=== PATIENT | female | born 1950 | race Caucasian/White ===

== ENCOUNTER → 2018-09-02 11:58 | Outpatient (CLI) | payer OTHER, SELFPAY ==
[2016-12-07 18:49] VITALS: BMI 27.5
--- NOTE | 2018-09-02 12:20 | BI_ITS ---
MAMMOGRAPHY - BILATERAL SCREENING 3-D RODO SYNTHESIS REASON FOR EXAM: Female, 68 years old. Bilateral Screening 3-D tomosynthesis PERTINENT HISTORY: Family history of breast cancer in maternal aunt.. TECHNIQUE: 2-D mammograms and 3-D Rodo synthesis of the breast (s) were performed. CAD was performed. COMPARISON: March 15, 2017, March 14, 2016 FINDINGS: The breast composition is heterogeneously dense that can obscure small breast masses. Scattered benign calcifications are stable. There are stable normal-appearing lymph nodes in both axillae. No dense spiculated masses or suspicious microcalcifications are identified. No architectural distortion is identified. There is no skin thickening or retraction. There has been no significant change since the prior study. BI/SCREENING MAMM (CAD), BILAT IMPRESSION: No mammographic signs of malignancy. Routine yearly mammograms recommended. ASSESSMENT CATEGORY: BIRADS Category 2: Benign. A letter regarding these results will be sent to the patient by the facility within 30 days. FOLLOW UP RECOMMENDATION: Yearly follow up mammogram recommended. (A) Approximately 10% of breast cancers are not detected by mammography. A normal mammogram should not delay biopsy of a clinically suspicious abnormality. Electronically Signed: Hans Liang MD at 17:52 EDT , Service support ,
--- NOTE | 2018-09-02 12:30 | BD_ITS ---
STUDY: DUAL ENERGY X-RAY ABSORPTIOMETRY / DXA REASON FOR EXAM: Female, 68 years old. The patient is postmenopausal. Loss of height. TECHNIQUE: Bone Mineral Density (BMD) measurements of lumbar spine and bilateral hips were obtained. COMPARISON: Comparison is made with prior examination dated July 15, 2012. FINDINGS: Lumbar Spine (L1-L4): g/cm2 (1.075) / T-score (-0.8) / Z-score (0.8) Findings are suggestive of normal bone density with a low fracture risk. Left Femur Total: g/cm2 (0.957) / T-score (-0.4) / Z-score (0.9) Left Femoral Neck: g/cm2 (0.923) / T-score (-0.8) / Z-score (0.7) Right Femur Total: g/cm2 (0.893) / T-score (-0.9) / Z-score (0.4) Right Femoral Neck: g/cm2 (0.877) / T-score (-1.2) / Z-score (0.4) The T-Scores on the most recent prior examination were: Lumbar Spine (L1-L4): There has been worsening of bone density since the previous examination. Left Femur Total: which represents an improvement of 0.5%. Right Femur Total: which represents a worsening of 1.3%. BD/Dexa Bone Density Study IMPRESSION: The patient is considered osteopenic as outlined below according to World Joshua Organization (WHO) criteria with a low fracture risk. There has been worsening of bone density since the previous examination. Reference Information: The T-score is the number of standard deviations above or below the standard which is normal for young adults at their peak bone mineral density. The World Health Organization (WHO) interprets the T-scores as follows: Above -1 Normal bone density Between -1 and -2.5 Osteopenia Equal to / or below -2.5 Osteoporosis As a practical clinical guideline, osteopenia may be graded as follows: Mild -1 through -1.5 Moderate -1.6 through -2.0 Severe -2.1 through -2.4 The Z-score is the number of standard deviations above or below age-matched controls. A Z-score of less than -1.5 would be considered abnormal. References: 1. NIH Osteoporosis and Related Bone Diseases http://www.osteo.org 2. International Society for Clinical Densitometry http://www.iscd.org 3. National Osteoporosis Foundation http://www.nof.org Electronically Signed: Robert Trujillo, at 8:45 EDT , Service support ,
== END ==
PROVIDERS: Family Provider Nurse Practitioner; PCP Nurse Practitioner; Referring Provider Nurse Practitioner; Visit Provider Nurse Practitioner
DX: Z12.31 Encounter for screening mammogram for malignant neoplasm of breast (principal); Z78.0 Asymptomatic menopausal state
CPT/HCPCS: 77063; 77067; 77080

== ENCOUNTER 2019-12-01 13:50 | Emergency (ER) | payer OTHER, SELFPAY ==
[2019-12-01 13:51] VITALS: BP 153/71; PULSE 74; RESP 16; TEMP 36.6; O2SAT 97; BMI 27.3
--- NOTE | 2019-12-01 15:08 | ED.DCSUM_ITS ---
- ER Visit Summary Date of Service: 12/01/19 Chief Complaint: [Laceration left index finger] History of Present Illness: The patient is a 69 F [presents to the emergency department with complaint of laceration to the left index finger that occurred this afternoon. Patient states that she was trying to open a nail pashto bottle with a knife when she accidentally cut herself. Patient is right-hand dominant. Patient unclear when her last tetanus was. Patient has no medical history.] Physical Examination: [Left index finger-there is a 2.5 cm laceration over the PIP joint lateral aspect. Patient has normal flexion extension at the PIP and DIP against resistance. She has somewhat decreased sensation distally over the lateral aspect of the digit. She complains of paresthesias.] Test Results: [None indicated] Emergency Department Course and Treatment: [Laceration repair-wound sterilely draped and prepped. Wound anesthetized with 1% lidocaine total of 7 cc using digital block. Wound cleansed with Shur-Clens and irrigated with copious saline. Sterile rubber band used as a tourniquet and good hemostasis was obtained. The wound was inspected through flexion extension and I see no evidence of tendon laceration. Using 5-0 nylon a total of 5 single ruptured sutures placed with good wound edge approximation. Patient tolerated procedure well.] Treatment Plan: [Follow-up with primary care physician in 10 days for suture removal. Patient advised to return if increasing pain, redness, swelling, purulent drainage, or condition should worsen anyway.] Disposition: [Discharged home in stable condition] Impression: [Laceration left index finger 2.5 cm-simple repair] This note was generated with [employer] dictation software. It may contain incorrect words, spelling, and punctuation that were not noted in review of the chart prior to signing ED Disposition - Plan for ED Patient: Referrals: Parris Sparks, RENE-C [Primary Care Provider] -
--- NOTE | 2019-12-01 15:11 | ED.DEP ---
ED Disposition - Plan for ED Patient: Instructions: ED Laceration Hand Referrals: Parris Sparks, RENE-C [Primary Care Provider] - 10 Day for suture removal
[2019-12-01] MEDS: Diphth,Pertuss(Acell),Tet Vac 0.5 ML Vial IM (15:12)
== END 2019-12-01 15:22 | disposition home or self-care (01) ==
LOC: ED 14:40
PROVIDERS: Emergency Provider Emergency Medicine; PCP Nurse Practitioner
DX: S61.211A Laceration without foreign body of left index finger without damage to nail, initial encounter (principal); W26.0XXA Contact with knife, initial encounter; Y93.9 Activity, unspecified; Y92.9 Unspecified place or not applicable; Y99.9 Unspecified external cause status; Z23 Encounter for immunization
CPT/HCPCS: 12001; 90471; 90715; 99283

== ENCOUNTER → 2020-01-14 09:45 | Outpatient (CLI) | payer OTHER, SELFPAY ==
--- NOTE | 2020-01-14 09:49 | BI_ITS ---
MAMMOGRAPHY - BILATERAL SCREENING REASON FOR EXAM: Female, 69 years old. Routine annual screening examination. PERTINENT HISTORY: Aunt with breast cancer. TECHNIQUE: Digital bilateral breast rodo (3D mammographic acquisition) in the CC and MLO projections. 2-D mediolateral oblique (MLO) and craniocaudad (CC) views of both breasts were obtained. CAD: Full Field Digital Mammography with Computer Added Detection was performed. COMPARISON: Comparison is made with prior examination of 09/02/2018 and 03/15/2017. FINDINGS: Breast Composition: The breasts are heterogeneously dense, which may obscure small masses. There are no dominant masses or suspicious calcifications. Stable small benign appearing bilateral axillary lymph nodes. No other significant abnormalities are identified. There has been no significant change since the prior study. BI/SCREEN MAMM (CAD) W/RODO BILAT IMPRESSION: Stable bilateral screening mammogram. Yearly follow-up mammogram recommended. (A) ASSESSMENT CATEGORY: BIRADS Category 2: Benign. A letter regarding these results will be sent to the patient by the facility within 30 days. Approximately 10% of breast cancers are not detected by mammography. A normal mammogram should not delay biopsy of a clinically suspicious abnormality. [id number] Electronically Signed: Robert Trujillo, at 11:31 EDT , Service support ,
== END ==
PROVIDERS: PCP Nurse Practitioner; Referring Provider Nurse Practitioner; Visit Provider Nurse Practitioner
DX: Z12.31 Encounter for screening mammogram for malignant neoplasm of breast (principal)
CPT/HCPCS: 77063; 77067

== ENCOUNTER → 2021-10-18 | Outpatient (CLI) | payer OTHER, SELFPAY ==
--- NOTE | 2021-10-18 15:48 | CT_ITS ---
STUDY: CT ABDOMEN AND PELVIS WITHOUT CONTRAST REASON FOR EXAM: Female, 71 years old. FLANK PAIN RADIATION DOSAGE (If Supplied By Facility): CTDIvol = ( 8.18 ) mGy, DLP = ( 368.01 ) mGycm TECHNIQUE: Transaxial images were obtained from the dome of the diaphragm to the symphysis pubis without oral contrast, and without intravenous contrast. Sagittal and coronal images were reconstructed. Individualized dose optimization techniques were used for this CT. COMPARISON: None. FINDINGS: The visualized lung bases are unremarkable. The visualized portions of the heart are within normal limits. Normal liver. Normal gallbladder and extrahepatic biliary system. Normal spleen. Normal pancreas. Normal bilateral adrenal glands. Normal right kidney. Normal left kidney. Normal visualized stomach. Normal small intestine. Normal colon. The appendix is visualized and appears normal. Normal abdominal aorta. Normal inferior vena cava. Normal retroperitoneum. Normal urinary bladder. Normal abdominal wall. Normal osseous structures. CT/Abdomen/Pelvis without Cont IMPRESSION: Normal unenhanced CT of the abdomen and pelvis. Electronically Signed: Alfredo De La Torre MD at 2:34 EDT ,
== END | disposition home or self-care (01) ==
PROVIDERS: PCP Nurse Practitioner; Referring Provider Internal Medicine; Visit Provider Internal Medicine
DX: R10.9 Unspecified abdominal pain (principal)
CPT/HCPCS: 74176

== ENCOUNTER → 2022-05-17 | Outpatient (CLI) | payer OTHER, SELFPAY ==
--- NOTE | 2022-05-17 09:03 | BI_ITS ---
MAMMOGRAPHY - BILATERAL SCREENING REASON FOR EXAM: Female, 72 years old. Routine annual screening examination. PERTINENT HISTORY: Aunts with breast cancer. TECHNIQUE: Digital bilateral breast rodo (3D mammographic acquisition) in the CC and MLO projections. 2-D mediolateral oblique (MLO) and craniocaudad (CC) views of both breasts were obtained. CAD: Full Field Digital Mammography with Computer Added Detection was performed. COMPARISON: Comparison is made with prior examination dated 01/14/2020 and 09/02/2018. FINDINGS: Breast Composition: The breasts are extremely dense, which lowers the sensitivity of mammography. New cluster of microcalcification in the retroareolar region of the left breast. Biopsy recommended. No other significant abnormalities are identified. BI/SCRN MAMM (CAD)W/RODO BILAT IMPRESSION: New cluster microcalcification in the retroareolar region of the left breast as described. Biopsy recommended. ASSESSMENT CATEGORY: BIRADS Category 4: Suspicious - Biopsy Should Be Considered. A letter regarding these results will be sent to the patient by the facility within 30 days. Approximately 10% of breast cancers are not detected by mammography. A normal mammogram should not delay biopsy of a clinically suspicious abnormality. [id number] Electronically Signed: Robert Trujillo MD at 10:38 EST ,
--- NOTE | 2022-05-17 09:12 | BD_ITS ---
STUDY: DUAL ENERGY X-RAY ABSORPTIOMETRY / DXA REASON FOR EXAM: Female, 72 years old. [id number] TECHNIQUE: Bone Mineral Density (BMD) measurements of lumbar spine and bilateral hips were obtained. COMPARISON: Comparison is made with prior study dated 09/02/2018. FINDINGS: Lumbar Spine (L1-L4): g/cm2 (0.925) / T-score (-0.8) / Z-score (1.3) Findings are suggestive of normal bone density with a low fracture risk. Left Femur Total: g/cm2 (0.877) / T-score (-0.5) / Z-score (1.0) Left Femoral Neck: g/cm2 (0.755) / T-score (-0.9) / Z-score (1.0) Right Femur Total: g/cm2 (0.871) / T-score (-0.6) / Z-score (1.0) Right Femoral Neck: g/cm2 (0.698) / T-score (-1.4) / Z-score (0.5) The T-Scores on the most recent prior examination were: Lumbar Spine (L1-L4): There has been worsening of bone density since the previous examination. Left Femur Total: which represents a worsening of 1.7%. Right Femur Total: which represents an improvement of 4.9%. BD/Dexa Bone Density Study IMPRESSION: The patient is considered osteopenic as outlined below according to World Joshua Organization (WHO) criteria with a low fracture risk. There has been worsening of bone density since the previous examination. Reference Information: The T-score is the number of standard deviations above or below the standard which is normal for young adults at their peak bone mineral density. The World Health Organization (WHO) interprets the T-scores as follows: Above -1 Normal bone density Between -1 and -2.5 Osteopenia Equal to / or below -2.5 Osteoporosis As a practical clinical guideline, osteopenia may be graded as follows: Mild -1 through -1.5 Moderate -1.6 through -2.0 Severe -2.1 through -2.4 The Z-score is the number of standard deviations above or below age-matched controls. A Z-score of less than -1.5 would be considered abnormal. References: 1. NIH Osteoporosis and Related Bone Diseases www osteo.org 2. International Society for Clinical Densitometry www iscd.org 3. National Osteoporosis Foundation www nof.org Electronically Signed: Robert Trujillo MD at 11:54 EST ,
== END | disposition home or self-care (01) ==
PROVIDERS: PCP Nurse Practitioner Family; Visit Provider Nurse Practitioner Family
DX: Z12.31 Encounter for screening mammogram for malignant neoplasm of breast (principal); Z78.0 Asymptomatic menopausal state
CPT/HCPCS: 77063; 77067; 77080

== ENCOUNTER → 2022-06-06 | Outpatient (CLI) | payer OTHER, SELFPAY ==
--- NOTE | 2022-06-06 08:15 | BRBX_PTH ---
PATIENT: KATLYN DENNIS LOC: [facility] U#:[id number] AGE/SX: 72/F ROOM: RE06/06/[address]: Dr. Barrington Donahue MD : 1950 BED: DIS: 06/06/2022 SPEC #: [id number] RECD: 06/06/22 09:13 STATUS: CARLOS REAmy #: [id number] ANGELICA: 06/06/22 08:[address]: Barrington Donahue DEPT: SURGICAL PATHOLOGY RECD BY: Glory Verdugo ENTERED: 06/06/22 09:44 SP TYPE: BREAST BX OTHR DR: Jodi Gil NP-Lucas Tissues: Left breast, NOS Procedures: Surgery Specimen Level IV HEADER OPERATION: Left stereotactic breast biopsy PRE-OP DIAGNOSIS: Left retroareolar breast microcalcification TISSUE SUBMITTED: Left breast core tissue ISCHEMIC TIME: 1 minute FIXATION TIME: 10.5 hours MICROSCOPIC DIAGNOSIS Left retroareolar breast microcalcification, stereotactic core biopsy: Ductal dilatation with periductal fibrosis, chronic inflammation and focal calcifications. Negative for atypia or malignancy. See comment. KARLA:derrick 06/07/2022 COMMENT Correlation with clinical, radiologic findings and appropriate follow up are necessary. MICROSCOPIC DESCRIPTION Slides are reviewed. GROSS DESCRIPTION Received in fixative is one container labeled with the patient's name and designated left breast. The specimen consists of multiple irregular and elongated fragments of akhtar-yellow soft tissue that in aggregate measure 3 x 2.2 x 0.2 cm. The specimen is totally submitted in one cassette. / AM:derrick 06/06/2022 TC:5 CPT: 74754
--- NOTE | 2022-06-06 08:27 | PCM.OPRPT ---
Report of Operation Date of Procedure: 06/06/22 Pre-Operative Diagnosis: Left breast microcalcifications Post-Operative Diagnosis: Same Surgery/Procedure Performed:: Stereotactic guided core needle biopsy of left breast Specimen's removed: Left breast biopsy Description of Procedure: Patient was placed in the stereotactic table and the breast was compressed. The microcalcifications were localized and then stereotactic views were obtained. The breast was prepped and draped and the skin was injected with local anesthetic. A small chava was made with a scalpel and the needle was placed into the breast and deployed. Stereotactic views were obtained showing that it was in good position. Next biopsies were obtained in 180 degree fashion. The specimens were x-rayed and did contain microcalcifications. Next a clip was placed into the breast and the needle was removed. A repeat image was taken and showed the clip was in the biopsy cavity. Patient tolerated procedure well and Steri-Strip and bandage were placed. Postoperative instructions were given to the patient.
== END | disposition home or self-care (01) ==
LOC: BIRAD 07:31
PROVIDERS: PCP Nurse Practitioner Family; Visit Provider Surgery
DX: N60.42 Mammary duct ectasia of left breast (principal)
CPT/HCPCS: 19081; 88305; J7050; A4648

== ENCOUNTER 2023-10-25 17:17 | Emergency (ER) | payer MEDICARE, SELFPAY ==
[2023-10-25 17:18] VITALS: BP 165/64; PULSE 71; RESP 16; TEMP 36.6; O2SAT 98; BMI 26.3
[2023-10-25 19:18] VITALS: BP 177/69; PULSE 63; RESP 13; O2SAT 99
--- NOTE | 2023-10-25 19:33 | RAD_ITS ---
INDICATION: chest pain EXAMINATION/TECHNIQUE: X-RAY - XR Chest 2 Views COMPARISON: No previous relevant examinations available for comparison.. FINDINGS: LIFE-SUPPORT AND LINES: 1. None HEART AND VESSELS: The cardiac silhouette, pulmonary vasculature have normal appearance. No evidence of congestive failure. LUNGS AND PLEURAL SPACES: Lungs are clear. No focal infiltrate, consolidation or effusions. No evidence of pneumothorax. No pulmonary mass is noted. MEDIASTINUM AND HILAR REGIONS: No masses adenopathy noted. No areas of calcification. Visualized upper airway is normal in position. BONY ELEMENTS: No acute bony changes noted. RAD/Chest PA and Lateral IMPRESSION: 1. No evidence of acute cardiopulmonary process Electronically Signed: Gabriel Miller MD at 20:12 EDT ,
--- NOTE | 2023-10-25 19:52 | ED.VIS.CHEST ---
HPI <GRECIA Lopez - Last Filed: 10/25/23 21:17> History of Present Illness Chief Complaint: Chest Pain Narrative Narrative: Patient presenting today due to left sided chest pain that started yesterday. She reports that she only notices the pain when she takes a deep breath, it is not exertional. She denies any recent illness or cough. She denies any cardiac history. She reports a PMH of hyperlipidemia and depression. She denies any fevers, chills, abdominal pain, shortness of breath, nausea, or vomiting. PE Risk Factors: Negative for Recent Travel/Surgery, Recent Immobilization, Prior DVT or PE or Cancer PFSH <GRECIA Lopez - Last Filed: 10/25/23 21:17> PFSH Home Medications citalopram 20 mg tablet (Celexa) 20 mg PO QHS 12/07/16 [History Last Taken Unknown] simvastatin 20 mg tablet 20 mg PO QHS 12/07/16 [History Last Taken Unknown] prednisone 20 mg tablet 40 mg (2 x 20 mg) PO DAILY 5 days #10 tabs 10/25/23 [Rx Last Taken Unknown] Allergy/AdvReac Type Severity Reaction Status Date / Time No Known Allergies Allergy Verified 05/25/22 14:28 Social History Smoking Status: Never smoker ROS <GRECIA Lopez - Last Filed: 10/25/23 21:17> ROS ED Constitutional Constitutional ED: Denies chills or fever(s) Cardiovascular Cardiovascular: Reports chest pain; Denies palpitations or racing heartbeat Respiratory/Chest Respiratory/Chest: Denies cough or dyspnea Gastrointestinal Gastrointestinal: Denies abdominal pain, nausea or vomiting Musculoskeletal Musculoskeletal: Denies arthralgias or myalgias Integumentary Denies rash Neurologic Neurologic: Denies weakness EXAM <GRECIA Lopez - Last Filed: 10/25/23 21:17> Physical Exam Const Vital Signs: 10/25/23 17:18 10/25/23 19:58 10/25/23 19:18 Temperature 98 F Temperature Source Temporal Pulse Rate 71 63 Respiratory Rate 16 13 Respiratory Effort Normal Blood Pressure 165/64 H 177/69 H Blood Pressure Mean 97 105 Pulse Ox 98 99 Oxygen Delivery Method Room Air Room Air 10/25/23 21:00 10/25/23 21:21 Temperature 98 F Temperature Source Pulse Rate 64 63 Respiratory Rate 18 25 H Respiratory Effort Blood Pressure 166/42 H 155/9 H Blood Pressure Mean 83 57 Pulse Ox 97 98 Oxygen Delivery Method Room Air Positive well nourished, well developed and no apparent distress General Appearance ED: well developed HEENT Reports normocephalic and head/scalp atraumatic Mouth ED: Yes moist mucous membranes normal Eyes PERRL and EOMs intact bilaterally Neck full ROM and supple Chest Wall inspection of chest normal and palpation of chest normal Resp normal respiratory effort and clear to auscultation bilaterally Cardio regular rate and regular rhythm GI soft to palpation, non-tender, non-distended and no masses Back/Spine normal ROM and normal to inspection Extremity normal to inspection and full ROM Neuro oriented x3, CN's II-XII intact bilaterally, moves all extremities, no focal motor deficits and no sensory deficits noted Sensorium / Orientation: awake and alert Psych mental status grossly normal and thought process normal Skin no rashes or lesions noted and no wounds <Dr. Dalton Chaney MD - Last Filed: 10/25/23 23:21> Physical Exam Const Vital Signs: 10/25/23 17:18 10/25/23 19:58 10/25/23 19:18 Temperature 98 F Temperature Source Temporal Pulse Rate 71 63 Respiratory Rate 16 13 Respiratory Effort Normal Blood Pressure 165/64 H 177/69 H Blood Pressure Mean 97 105 Pulse Ox 98 99 Oxygen Delivery Method Room Air Room Air 10/25/23 21:00 10/25/23 21:21 Temperature 98 F Temperature Source Pulse Rate 64 63 Respiratory Rate 18 25 H Respiratory Effort Blood Pressure 166/42 H 155/9 H Blood Pressure Mean 83 57 Pulse Ox 97 98 Oxygen Delivery Method Room Air MDM <GRECIA Lopez - Last Filed: 10/25/23 21:17> [facility] Narrative Medical decision making narrative: Patient presenting with left-sided chest pain that she has had with deep breaths since yesterday. Her pain is gradually worsening. She is well-appearing and in no acute distress. Vitals are unremarkable. Although low Wells score, D-dimer will be obtained to rule out PE. Cardiac workup will be obtained. CBC, BMP, troponin, and D-dimer are all unremarkable. Chest x-ray negative for any acute findings. Her examination is consistent with pleurisy. She is to follow-up with her PCP and will be discharged home in stable condition. She is comfortable with plan. Lab Data Attestation: I reviewed the patient's lab results. Lab results narrative: Potassium 3.4 Labs: Laboratory Results - last 24 hr 10/25/23 19:30 WBC 5.7 RBC 4.84 Hgb 14.4 Hct 44.1 MCV 91.1 MCH 29.8 MCHC 32.7 RDW Std Deviation 41.3 RDW Coeff of [place] 12.3 Plt Count 276 MPV 10.3 Immature Gran % (Auto) 0.200 Neut % (Auto) 50.1 Lymph % (Auto) 36.8 [place] % (Auto) 9.5 Eos % (Auto) 2.5 Baso % (Auto) 0.9 Absolute Neuts (auto) 2.9 Absolute Lymphs (auto) 2.10 Nucleated RBC % 0 D-Dimer Quant (PE/DVT) < 0.27 L Sodium 142 Potassium 3.4 L Chloride 105 Carbon Dioxide 32.0 Anion Gap 5 BUN 18 Creatinine 0.75 Estim Creat Clear Calc 51.96 Est GFR (MDRD) Af Amer 98 Est GFR (MDRD) Non-Af 81 BUN/Creatinine Ratio 24.1 H Glucose 102 Calcium 9.5 Troponin I High Sens 4 Radiography X-Ray: Read by ED Physician Diagnostic Testing: Clinical Impression(s) from Imaging Studies Chest X-Ray 10/25/23 19:33 IMPRESSION: 1. No evidence of acute cardiopulmonary process Electronically Signed: Gabriel Miller MD at 20:12 EDT , EKG Initial EKG: Comments: 60 bpm, normal sinus rhythm, left axis deviation, no ST elevation, reviewed and interpreted by attending ED physician <Dr. Dalton Chaney MD - Last Filed: 10/25/23 23:21> [facility] Lab Data Labs: Laboratory Results - last 24 hr 10/25/23 19:30 WBC 5.7 RBC 4.84 Hgb 14.4 Hct 44.1 MCV 91.1 MCH 29.8 MCHC 32.7 RDW Std Deviation 41.3 RDW Coeff of [place] 12.3 Plt Count 276 MPV 10.3 Immature Gran % (Auto) 0.200 Neut % (Auto) 50.1 Lymph % (Auto) 36.8 [place] % (Auto) 9.5 Eos % (Auto) 2.5 Baso % (Auto) 0.9 Absolute Neuts (auto) 2.9 Absolute Lymphs (auto) 2.10 Nucleated RBC % 0 D-Dimer Quant (PE/DVT) < 0.27 L Sodium 142 Potassium 3.4 L Chloride 105 Carbon Dioxide 32.0 Anion Gap 5 BUN 18 Creatinine 0.75 Estim Creat Clear Calc 51.96 Est GFR (MDRD) Af Amer 98 Est GFR (MDRD) Non-Af 81 BUN/Creatinine Ratio 24.1 H Glucose 102 Calcium 9.5 Troponin I High Sens 4 Radiography Diagnostic Testing: Clinical Impression(s) from Imaging Studies Chest X-Ray 10/25/23 19:33 IMPRESSION: 1. No evidence of acute cardiopulmonary process Electronically Signed: Gabriel Miller MD at 20:12 EDT , Treatment and Re-Evaluation Comments:: I have personally performed a face to face assessment of the patient and have reviewed the [facility] Note. I performed a substantive portion of the visit including all aspects of the following. My pitt findings include: History is pleuritic chest discomfort just left of sternum all day today. No dyspnea. No leg pain or swelling. No recent immobilization, long travel, hospitalization or surgery. No radiation of the discomfort. No palpitations, sweating, or other symptoms of angina. Exam is well-appearing, lungs clear to auscultation, heart regular no murmur no tachycardia, no calf tenderness, palpable cords, or pedal edema. No JVD. Chest nontender does not reproduce pain. Medical Decison Making differential includes atypical cardiac pain, pericarditis, pleural effusion, pneumothorax, pleurisy. 2 view chest x-ray normal in my interpretation, radiology in agreement. EKG is unremarkable, troponin and D-dimer all normal. Therefore, since we see no signs of pericarditis on EKG we suspect this is pleurisy. Supportive care with medications and close outpatient follow-up if not resolving. She is comfortable with that plan. Other additions or changes: [None] Discharge Plan Triage Chief Complaint: Chest Pain ED Midlevel Provider: Rachel Morrison ED Provider: Dalton Chaney Dx/Rx/DC Orders Clinical Impression: Pleurisy Instructions: ED Pleurisy Prescriptions: New prednisone 20 mg tablet 40 mg PO DAILY 5 Days Qty: 10 0RF No Action citalopram [Celexa] 20 MG tablet 20 mg PO QHS simvastatin 20 MG tablet 20 mg PO QHS Primary Care Provider: Jodi Gil Referrals: Jodi Gil, RENE-C [Primary Care Provider] - 5-7 Days Activity Restrictions/Additional Instructions: Follow-up with your PCP and return for any worsening of your symptoms. Disposition Disposition: Home, Self Care Discharge Date/Time: 10/25/23 21:31
[2023-10-25 20:07] LABS: Absolute Neutrophil Count 2.9 X10^3/uL (2.0-7.7); Basophil# 0.05 X10^3/uL; Basophil% 0.9 % (0-1); Eosinophil# 0.14 X10^3/uL; Eosinophils% 2.5 % (0-5); Hematocrit 44.1 % (37-47); Hemoglobin 14.4 g/dL (12.0-15.0); Lymphocyte % 36.8 % (19-41); Mean Corp Hgb Conc 32.7 g/dL (32-36); Mean Corpuscular Hgb 29.8 pg (27.0-32.0); Mean Corpuscular Volume 91.1 fL (81-99); Mean Platelet Vol. 10.3 fl (6.2-12.0); Monocyte# 0.54 X10^3/uL; Monocyte% 9.5 % (0-10); NRBC Flagged by Analyzer 0 % (0-5); Neutrophil # 2.86 X10^3/uL (2.7-7.7); Neutrophil % 50.1 % (47-70); Platelet Count 276 K/mm3 (150-450); RBC Distribution Width CV 12.3 % (11.6-14.6); RBC Distribution Width SD 41.3 fl (35.1-43.9); Red Blood Count 4.84 M/mm3 (4.2-5.4); White Blood Count 5.7 K/mm3 (4.4-11.0)
[2023-10-25 20:24] LABS: D-Dimer Quantitative (DVT/PE) < 0.27 FEU/ug/m (0.27-0.49)
[2023-10-25 20:33] LABS: Anion Gap 5 (5-15); BUN 18 mg/dL (7-18); BUN/Creat Ratio 24.1 RATIO (10-20); Calcium,Total 9.5 mg/dL (8.5-10.1); Chloride 105 mmol/L (98-107); Creatinine, Serum 0.75 mg/dL (0.55-1.02); EST Glomerular Filtration Rate 81 mL/min (>60); Est Glom Filt Rate - Afr Amer 98 mL/min (>60); Estimated Creatinine Clearance 51.96 ml/min; Glucose 102 mg/dL (74-106); Potassium 3.4 mmol/L (3.5-5.1); Sodium Level 142 mmol/L (136-145); Troponin-I HS (w/2H Reflex) 4 pg/mL (3.0-54.0)
[2023-10-25 21:00] VITALS: BP 166/42; PULSE 64; RESP 18; O2SAT 97
[2023-10-25 21:21] VITALS: BP 155/9; PULSE 63; RESP 25; TEMP 36.6; O2SAT 98
[2023-10-25] MEDS: predniSONE 20 MG Tablet 40 MG PO (21:29)
[2023-10-25 21:55] LABS: Reflex Troponin-HS? (from REC) Y
== END 2023-10-25 21:31 | disposition home or self-care (01) ==
PROVIDERS: Physician Assistant; Emergency Provider Emergency Medicine; PCP Nurse Practitioner Family; Visit Provider Emergency Medicine
DX: R09.1 Pleurisy (principal); E78.5 Hyperlipidemia, unspecified; F32.A Depression, unspecified; Z79.899 Other long term (current) drug therapy
CPT/HCPCS: 71046; 80048; 84484; 85025; 85379; 93005; 99284; A4216

== ENCOUNTER → 2023-11-27 | Outpatient (CLI) | payer MEDICARE, SELFPAY ==
--- NOTE | 2023-11-27 13:26 | BI_ITS ---
MAMMOGRAPHY - BILATERAL SCREENING REASON FOR EXAM: Female, 73 years old. Routine annual screening examination. PERTINENT HISTORY: Aunts with breast cancer. History of prior left stereotactic breast biopsy. TECHNIQUE: Digital bilateral breast rodo (3D mammographic acquisition) in the CC and MLO projections. 2-D mediolateral oblique (MLO) and craniocaudad (CC) views of both breasts were obtained. CAD: Full Field Digital Mammography with Computer Added Detection was performed. COMPARISON: Comparison is made with prior study May 17, 2022 and January 14, 2020. FINDINGS: Breast Composition: The breasts are extremely dense, which lowers the sensitivity of mammography. There are no dominant masses or suspicious calcifications. A tissue clip marker is seen in the slightly upper lateral aspect of the anterior left breast at the site of microcalcifications. Stable small bilateral axillary lymph nodes. No other significant abnormalities are identified. There has been no significant change since the prior study. BI/SCRN MAMM (CAD)W/RODO BILAT IMPRESSION: Stable bilateral screening mammogram. Yearly follow-up mammogram recommended. (A) ASSESSMENT CATEGORY: BIRADS Category 2: Benign. A letter regarding these results will be sent to the patient by the facility within 30 days. Approximately 10% of breast cancers are not detected by mammography. A normal mammogram should not delay biopsy of a clinically suspicious abnormality. [id number] Electronically Signed: Robert Trujillo MD at 14:41 EDT ,
== END | disposition home or self-care (01) ==
LOC: OPBI 13:25
PROVIDERS: PCP Nurse Practitioner Family; Referring Provider Nurse Practitioner Family; Visit Provider Nurse Practitioner Family
DX: Z12.31 Encounter for screening mammogram for malignant neoplasm of breast (principal)
CPT/HCPCS: 77063; 77067

== ENCOUNTER → 2024-12-01 | Outpatient (CLI) | payer MEDICARE, OTHER, SELFPAY ==
--- NOTE | 2024-12-01 14:39 | BI_ITS ---
EXAM: SCRN MAMM (CAD)W/RODO BILAT DATE: 12/01/2024 CLINICAL HISTORY: F, Age 74 y/o , SCREENING BREAST CANCER RISK ASSESSMENT: Na TECHNIQUE: Bilateral screening digital breast tomosynthesis with 2D and 3D images. Computer aided detection. COMPARISON: Prior exam(s) were compared FINDINGS: TISSUE DENSITY: The breast tissue is heterogeneously dense, which may obscure small masses. Bilateral Breast Mammographic Findings: No suspicious masses, calcifications or other abnormalities are identified. BI/SCRN MAMM (CAD)W/RODO BILAT IMPRESSION: No mammographic evidence of malignancy in either breast OVERALL FINAL ASSESSMENT BI-RADS 1: NEGATIVE. RECOMMEND ANNUAL MAMMOGRAPHIC SCREENING. RECOMMENDATION: Routine annual follow-up in 1 Year A letter with findings and recommendations will be mailed to the patient. Reading Location: [id number]
== END | disposition home or self-care (01) ==
PROVIDERS: PCP Nurse Practitioner Family; Referring Provider Nurse Practitioner Family; Visit Provider Nurse Practitioner Family
DX: Z12.31 Encounter for screening mammogram for malignant neoplasm of breast (principal)
CPT/HCPCS: 77063; 77067

== ENCOUNTER → 2025-04-20 | Outpatient (CLI) | payer MEDICARE, OTHER, SELFPAY ==
[2025-04-20 17:29] LABS: AST(SGOT) 24 U/L (<=31); Alanine Aminotransfer ALT/SGPT 20 U/L (<=34); Albumin, Serum 4.6 g/dL (3.4-4.8); Alkaline Phosphatase 72 U/L (35-104); Anion Gap 10 (5-15); BUN 17 mg/dL (4-19); BUN/Creat Ratio 23.8 RATIO (10-20); Calcium,Total 10.1 mg/dL (7.6-11.0); Carbon Dioxide 27.6 mmol/L (21.0-32.0); Chloride 103 mmol/L (98-108); Cholesterol 164 mg/dL (<=200); Globulin 2.8 g/dL (2.2-4.2); Glucose 101 mg/dL (70-99); Low Density Lipoprotein Calc. 88 mg/dL; Potassium 4.6 mmol/L (3.3-5.1); Triglycerides 82 mg/dL; Very Low Density Lipoprotein 16 mg/dL (5-40); cholesterol:hdl ratio screen 2.70
== END | disposition home or self-care (01) ==
LOC: VSLAB 13:46
PROVIDERS: PCP Nurse Practitioner Family; Referring Provider Nurse Practitioner Family; Visit Provider Nurse Practitioner Family
DX: E78.5 Hyperlipidemia, unspecified (principal); R73.03 Prediabetes
CPT/HCPCS: 36415; 80053; 80061; 83036